=== PATIENT | female | born 1990 | race Two or more races ===

== ENCOUNTER → 2017-09-15 | Emergency (ER) | payer BC ==
[~2017-09-15] VITALS: Ht 154.9 cm; Wt 74.8 kg
[~2017-09-15] MED LIST: ALBUTEROL SULF 0.083% NEB SOLN 3 ML NEB NEB STA; CEFTRIAXONE SOD 1 GM VIAL IM ONE; HYDROCODONE/CHLORPHENIRAMINE 5 ML LIQCR PO PRN; IPRATROPIUM BROMIDE 0.02% 2.5 ML NEB NEB STA
--- NOTE | 2017-09-15 14:48 | Diagnostic Imaging Report ---
PROCEDURE:CHEST 2 VIEWS TECHNIQUE:PA and lateral chest INDICATION:Pneumonia COMPARISON:None. FINDINGS: Right middle lobe airspace opacity. No cavitation. Lungs otherwise clear. No pleural effusions. Normal heart size. Intact skeleton. CONCLUSION: Non-cavitary right middle lobe pneumonia. Dictated by: Andrews Gould M.D. on 09/15/2017 at 14:48 Electronically approved by: Andrews Gould M.D. on 09/15/2017 at 14:48
[2017-09-15 15:35] VITALS: BP 122/83
== END | disposition home or self-care (01) ==
LOC: ER 13:55
DX: R05 Cough (principal); J15.9 Unspecified bacterial pneumonia
CPT/HCPCS: 71046; 96372; 99283; J0696